=== PATIENT | female | born 1990 | race Hispanic/Latino ===

== ENCOUNTER 2025-05-23 10:37 | Emergency (ER) | payer SELFPAY | END 2025-05-23 15:07 | disposition left against medical advice (07) | LOC: CSHERS 10:37 | DX: Z53.21 Procedure and treatment not carried out due to patient leaving prior to being seen by health care provider (principal) ==

== ENCOUNTER 2025-07-05 10:13 | Emergency (ER) | payer SELFPAY ==
[2025-07-05] MEDS ORDERED: Ketorolac Tromethamine 30 MG (1 mL) VIAL ONE (10:51)
[2025-07-05] MEDS ORDERED: Prochlorperazine 10 MG/2 ML VIAL ONE (10:51)
[2025-07-05] MEDS ORDERED: diphenhydrAMINE 25 MG CAP ONE (10:52)
[2025-07-05 11:40] LABS: Glucose, Urine (Dipstick) Normal (Negative); Leukocyte Negative (Negative); Protein, Urine (Dipstick) 30 mg/dl (Neg-Trace); Specific Gravity, Urine 1.025 (1.005-1.030)
[2025-07-05 11:42] LABS: Pregnancy Test - Urine (BHCG) Negative (Negative); Pregu Control Background? CLEAR/WHITE (CLR/WHITE); Pregu Control Bar Appear? YES (CONTROL BAR)
[2025-07-05 12:32] LABS: Bacteria/HPF 2+ HPF (None Seen); CAUTI Indications for Culture Dysuria,urgency,freq; Mucous/LPF 2+ LPF (<2+); RBC/HPF 0-3 HPF (0-3); WBC/HPF 0-3 HPF (0-3)
[2025-07-05 12:33] LABS: Urine Culture Reflex No No
== END 2025-07-05 11:39 ==
LOC: CSHERS 10:13
DX: G44.009 Cluster headache syndrome, unspecified, not intractable (principal)
CPT/HCPCS: 81001; 81025; 96372; 99284; J0780; J1885